=== PATIENT | male | born 2005 | race Caucasian/White ===

== ENCOUNTER → 2025-04-22 14:25 | Outpatient (REF) | payer BC, SELFPAY | LOC: RAD 14:25 | PROVIDERS: ATTENDING PHYSICIAN Nurse Practitioner | DX: J20.9 Acute bronchitis, unspecified (principal) | CPT/HCPCS: 71046 ==

== ENCOUNTER → 2025-09-09 14:13 | Outpatient (REF) | payer BC, SELFPAY | LOC: WDC 14:13 | PROVIDERS: ATTENDING PHYSICIAN Hospitalist | DX: N62 Hypertrophy of breast (principal) | CPT/HCPCS: 76642 ==